=== PATIENT | female | born 1965 | race African-American/Black ===

== ENCOUNTER 2017-02-23 08:25 | Emergency (ER) | payer BC ==
[~2017-02-23] VITALS: Ht 152.4 cm; Wt 81.7 kg
[~2017-02-23 08:25] MED LIST: ALPRAZOLAM PO; CLARITIN10 MG PO; CLONAZEPAM PO; FLEXERIL PO; FLONASE 0.05%50 MCG NASAL; HYDROCODON-ACE1 EAC7 PO; HYDROCODON-ACE1 EACH PO; LISINOPRIL40 MG PO; LYRICA 75 MG CA75 MG PO; MEDROLDOSEPACK PO; NORCO 5-325 TA1 EACH PO; NORVASC10 MG PO; PROTONIX40 M2 PO; ZOLOFT100 MG PO; ZYRTEC 10 MG TA10 MG PO
[2017-02-23] MEDS ORDERED: PRAVACHOL40 MG PO (08:38)
[2017-02-23] MEDS ORDERED: PREDNISONE 20 M20 MG PO (08:42)
[2017-02-23 09:38] VITALS: BP 146/100
== END 2017-02-23 09:40 | disposition home or self-care (01) ==
LOC: ER 08:25
DX: M25.561 Pain in right knee (principal); F17.210 Nicotine dependence, cigarettes, uncomplicated; Z88.0 Allergy status to penicillin; Z88.2 Allergy status to sulfonamides; Z91.041 Radiographic dye allergy status; Z88.1 Allergy status to other antibiotic agents

== ENCOUNTER 2017-04-21 18:02 | Emergency (ER) | payer BC ==
[~2017-04-21] VITALS: Ht 170.2 cm; Wt 97.5 kg
[~2017-04-21 18:02] MED LIST changes: +PRAVACHOL40 MG PO; +PREDNISONE 20 M20 MG PO
[2017-04-21] MEDS ORDERED: OSELB75 PO (19:19)
[2017-04-21] MEDS ORDERED: PROMETHAZINE/C118 ML PO (19:28)
[2017-04-21 19:38] VITALS: BP 132/92
== END 2017-04-21 19:39 | disposition home or self-care (01) ==
LOC: ER 18:02
DX: J11.1 Influenza due to unidentified influenza virus with other respiratory manifestations (principal); M19.90 Unspecified osteoarthritis, unspecified site; M79.7 Fibromyalgia; F17.210 Nicotine dependence, cigarettes, uncomplicated; Z88.0 Allergy status to penicillin; Z88.2 Allergy status to sulfonamides; Z88.1 Allergy status to other antibiotic agents; Z91.040 Latex allergy status

== ENCOUNTER 2019-05-25 10:06 | Emergency (ER) | payer BC ==
[~2019-05-25] VITALS: Ht 149.9 cm; Wt 86.2 kg
[~2019-05-25 10:06] MED LIST changes: +OSELB75 PO; +PROMETHAZINE/C118 ML PO
[2019-05-25] MEDS ORDERED: CLONIDINE HCL0.2 M2 PO (10:24)
[2019-05-25] MEDS ORDERED: PROMETH-CODEIN 65 ML PO (11:46)
[2019-05-25] MEDS ORDERED: LEVAQUIN 500 M500 M3 PO (11:46)
[2019-05-25] MEDS ORDERED: MUCINEX600 MG PO (11:46)
[2019-05-25 12:10] VITALS: BP 129/81
== END 2019-05-25 12:10 | disposition home or self-care (01) ==
LOC: ER 10:06
DX: J98.9 Respiratory disorder, unspecified (principal); M79.7 Fibromyalgia; M06.9 Rheumatoid arthritis, unspecified; F17.210 Nicotine dependence, cigarettes, uncomplicated; Z90.710 Acquired absence of both cervix and uterus; Z98.51 Tubal ligation status; Z91.040 Latex allergy status; Z88.0 Allergy status to penicillin; Z88.2 Allergy status to sulfonamides; Z88.8 Allergy status to other drugs, medicaments and biological substances

== ENCOUNTER 2019-08-12 10:56 | Emergency (ER) | payer BC ==
[~2019-08-12] VITALS: Ht 149.9 cm; Wt 72.6 kg
[~2019-08-12 10:56] MED LIST changes: +CLONIDINE HCL0.2 M2 PO; +LEVAQUIN 500 M500 M3 PO; +MUCINEX600 MG PO; +PROMETH-CODEIN 65 ML PO
[2019-08-12] MEDS ORDERED: BACLOFEN 10MG T10 MG PO (10:59)
[2019-08-12 12:09] LABS: ABSOLUTE NEUTROPHILS 7.9 thou/uL (1.4-8.2); BASOPHILS 1.4 % (0.0-2.0); EOSINOPHILS 0.4 % (0.0-3.0); HEMATOCRIT 47.8 % (37.0-47.0); HEMOGLOBIN 16.4 gm/dL (12.0-15.0); LYMPHOCYTES 27.3 % (24.0-44.0); MCH 33.4 pg (26.0-34.0); MCHC 34.3 g/dL (28.0-37.0); MCV 97.4 fL (80.0-100.0); MONOCYTES 7.4 % (1.0-8.0); PLATELET COUNT 228 thou/uL (150-400); POLYS 63.5 % (36.0-66.0); RDW 14.9 % (10.5-14.5); WBC 12.4 thou/uL (4.0-11.0)
[2019-08-12 12:12] LABS: URINE BILIRUBIN NEGATIVE (Negative); URINE BLOOD NEGATIVE (Negative); URINE CLARITY CLEAR; URINE COLOR YELLOW; URINE GLUCOSE-RANDOM* NEGATIVE (Negative); URINE KETONES NEGATIVE (Negative); URINE LEUKOCYTES-REFLEX NEGATIVE (Negative); URINE NITRITE-REFLEX NEGATIVE (Negative); URINE PROTEIN (DIPSTICK) TRACE (Negative); URINE SPECIFIC GRAVITY 1.015 (1.005-1.035); URINE UROBILINOGEN 0.2 E.U./dl (0.2-1.0)
[2019-08-12 12:27] LABS: ANION GAP 8 mmol/L (7-16); BUN 17 mg/dL (7-18); CALCIUM 9.7 mg/dL (8.5-10.1); CHLORIDE 101 mmol/L (98-107); CO2 26 mmol/L (21-32); CREATININE 1.3 mg/dL (0.6-1.0); GLUCOSE 94 mg/dL (74-106); POTASSIUM 4.2 mmol/L (3.5-5.1); SODIUM 135 mmol/L (136-145)
[2019-08-12 12:35] LABS: LIPASE 117 U/L (73-393); SGOT 26 U/L (15-37); SGPT 35 U/L (30-65); TOTAL BILIRUBIN 0.4 mg/dL (0.2-1.0); TOTAL PROTEIN 8.6 g/dL (6.4-8.2)
[2019-08-12 12:37] LABS: DIRECT BILIRUBIN < 0.1 mg/dL (<0.1-0.2)
[2019-08-12] MEDS ORDERED: ZOFRAN ODT4 MG PO (12:52)
[2019-08-12 13:04] VITALS: BP 184/109
== END 2019-08-12 13:05 | disposition home or self-care (01) ==
LOC: ER 10:56
PROVIDERS: Emergency Medicine
DX: S16.1XXA Strain of muscle, fascia and tendon at neck level, initial encounter (principal); S09.90XA Unspecified injury of head, initial encounter; R11.10 Vomiting, unspecified; F17.210 Nicotine dependence, cigarettes, uncomplicated; M79.7 Fibromyalgia; M06.9 Rheumatoid arthritis, unspecified; Z91.040 Latex allergy status; Z88.0 Allergy status to penicillin; Z88.2 Allergy status to sulfonamides; Z88.3 Allergy status to other anti-infective agents; Z79.899 Other long term (current) drug therapy; Z90.710 Acquired absence of both cervix and uterus; Z98.51 Tubal ligation status; X58.XXXA Exposure to other specified factors, initial encounter; Y93.89 Activity, other specified; Y92.89 Other specified places as the place of occurrence of the external cause; Y99.9 Unspecified external cause status

== ENCOUNTER 2020-03-01 08:23 | Emergency (ER) | payer BC ==
[~2020-03-01] VITALS: Ht 149.9 cm; Wt 77.1 kg
[~2020-03-01 08:23] MED LIST changes: +BACLOFEN 10MG T10 MG PO; +ZOFRAN ODT4 MG PO
[2020-03-01] MEDS ORDERED: MELOXICAM15 MG PO (08:35)
[2020-03-01] MEDS ORDERED: ZPAK PO (09:26)
[2020-03-01 09:27] VITALS: BP 117/79
== END 2020-03-01 09:44 | disposition home or self-care (01) ==
LOC: ER 08:23
DX: M54.32 Sciatica, left side (principal); J32.1 Chronic frontal sinusitis; J32.0 Chronic maxillary sinusitis; M06.9 Rheumatoid arthritis, unspecified; F17.210 Nicotine dependence, cigarettes, uncomplicated; Z91.040 Latex allergy status; Z88.0 Allergy status to penicillin; Z88.1 Allergy status to other antibiotic agents; Z88.3 Allergy status to other anti-infective agents; Z79.899 Other long term (current) drug therapy; Z90.710 Acquired absence of both cervix and uterus; Z98.51 Tubal ligation status

== ENCOUNTER 2020-08-02 08:26 | Emergency (ER) | payer BC ==
[~2020-08-02] VITALS: Ht 149.9 cm; Wt 72.6 kg
[~2020-08-02 08:26] MED LIST changes: +MELOXICAM15 MG PO; +ZPAK PO
[2020-08-02] MEDS ORDERED: NORCO5 PO (09:30)
[2020-08-02 10:20] VITALS: BP 133/71
== END 2020-08-02 10:21 | disposition home or self-care (01) ==
LOC: ER 08:26
DX: M25.552 Pain in left hip (principal); M25.551 Pain in right hip; M06.9 Rheumatoid arthritis, unspecified; M79.7 Fibromyalgia; F17.210 Nicotine dependence, cigarettes, uncomplicated; Z91.040 Latex allergy status; Z88.0 Allergy status to penicillin; Z88.2 Allergy status to sulfonamides; Z88.3 Allergy status to other anti-infective agents; Z79.899 Other long term (current) drug therapy; Z98.51 Tubal ligation status; Z90.710 Acquired absence of both cervix and uterus; Z98.890 Other specified postprocedural states

== ENCOUNTER → 2020-12-17 | Outpatient (CLI) | payer BC ==
[~2020-12-17] MED LIST changes: +NORCO5 PO
== END ==
LOC: SJCVCIMAG 10:24
PROVIDERS: ATTEND Internal Medicine
DX: R94.31 Abnormal electrocardiogram [ECG] [EKG] (principal); E78.5 Hyperlipidemia, unspecified; I10 Essential (primary) hypertension; K21.9 Gastro-esophageal reflux disease without esophagitis; G47.33 Obstructive sleep apnea (adult) (pediatric); F41.9 Anxiety disorder, unspecified; Z79.899 Other long term (current) drug therapy